=== PATIENT | female | born 1975 | race American Indian/Alaskan Native ===

== ENCOUNTER 2018-04-09 21:00 | Emergency (ER) | payer OTHER ==
[2018-04-09 21:18] VITALS: TEMP 98.1; O2SAT 100
[2018-04-09 21:19] VITALS: BMI 23.2
--- NOTE | 2018-04-09 22:49 | ED PDOC ---
Arrival/HPI - General Chief Complaint: Back Pain Time Seen by Provider: 04/09/18 21:26 Historian: Patient - History of Present Illness Narrative History of Present Illness (Text): 04/09/18 22:30 42yo female with no pmhx who present to ED with complaint of left sided upper back pain that radiates to her left elbow. Describes pain as spasm. States pain started when she woke up this morning. Pain is worse with abduction of her left arm. She did not take any medication for the pain. Denies trauma, cough, fever, chills, ripping/tearing upper back pain, nausea, vomiting, abdominal pain, chest pain, focal weakness, paresthesia. Past Medical History - Provider Review Nursing Documentation Reviewed: Yes - Psychiatric Hx Substance Use: No Family/Social History - Physician Review Nursing Documentation Reviewed: Yes Family/Social History: Unknown Family HX Smoking Status: Never Smoked Hx Alcohol Use: No Hx Substance Use: No Allergies/Home Meds Allergies/Adverse Reactions: Allergies No Known Allergies Allergy (Verified 04/09/18 21:17) Review of Systems - Physician Review All systems were reviewed & negative as marked: Yes - Review of Systems Constitutional: Normal Eyes: Normal ENT: Normal Respiratory: Normal Cardiovascular: Normal Gastrointestinal: Normal Genitourinary Female: Normal Musculoskeletal: Arthralgias (LEft shoulder/arm), Back Pain Skin: Normal Neurological: Normal Endocrine: Normal Hemo/Lymphatic: Normal Psychiatric: Normal Physical Exam Vital Signs Reviewed: Yes Vital Signs Temp Pulse Resp BP Pulse Ox 04/09/18 23:11 79 16 118/78 100 04/09/18 21:17 98.1 F 82 19 140/86 100 Temperature: Afebrile Blood Pressure: Normal Pulse: Regular Respiratory Rate: Normal Appearance: Positive for: Well-Appearing, Non-Toxic, Comfortable Pain Distress: None Mental Status: Positive for: Alert and Oriented X 3 - Systems Exam Head: Present: Atraumatic, Normocephalic Pupils: Present: PERRL Extroacular Muscles: Present: EOMI Conjunctiva: Present: Normal Mouth: Present: Moist Mucous Membranes Neck: Present: Normal Range of Motion Respiratory/Chest: Present: Clear to Auscultation, Good Air Exchange. No: Respiratory Distress, Accessory Muscle Use Cardiovascular: Present: Regular Rate and Rhythm, Normal S1, S2. No: Murmurs Abdomen: No: Tenderness, Distention, Peritoneal Signs Back: Present: Paraspinal Tenderness (Left parathoracic/scapular ). No: Midline Tenderness, Pain with Leg Raise Upper Extremity: Present: Normal ROM, NORMAL PULSES, Tenderness (LEft proximal shoulder ), Neurovascularly Intact. No: Cyanosis, Edema, Swelling Lower Extremity: Present: Normal Inspection. No: Edema Neurological: Present: GCS=15, CN II-XII Intact, Speech Normal Skin: Present: Warm, Dry, Normal Color. No: Rashes Psychiatric: Present: Alert, Oriented x 3, Normal Insight, Normal Concentration Medical Decision Making ED Course and Treatment: 04/10/18 01:44 PT presented for stated history. She denied trauma. she was hemodynamically stable. EKG NSR @ 64bpm Her pain was controlled in ED Thoracic spine xray - No acute finding Left shoulder rxray - No acute finding Result was DW the pt. she was referred to her PMD. DC home ibuprofen, flexeril and lidoderm. Advised to apply warm compress/shower to area and rest. - RAD Interpretation Radiology Orders: 04/09/18 21:37 DORSAL (THORACIC) SPINE [RAD] Stat 04/09/18 21:38 SHOULDER LEFT [RAD] Stat - Medication Orders Current Medication Orders: Discontinued Medications Cyclobenzaprine HCl (Flexeril) 10 mg PO STAT STA Stop: 04/09/18 21:39 Last Admin: 04/09/18 21:49 Dose: 10 mg Ketorolac Tromethamine (Toradol) 60 mg IM STAT STA Stop: 04/09/18 21:39 Last Admin: 04/09/18 21:49 Dose: 60 mg MAR Pain Assessment Document 04/09/18 21:49 CNR (Rec: 04/09/18 21:50 CNR [email or web address]) Pain Reassessment Is this a pain reassessment? No IM Administration Charges Document 04/09/18 21:49 CNR (Rec: 04/09/18 21:50 CNR [email or web address]) Injection Site MAR Injection Site Left Vastus Lateralis Charges for Administration # of IM Administrations 1 Oxycodone/Acetaminophen (Percocet 5/325 Mg Tab) 1 tab PO STAT STA Stop: 04/09/18 23:02 Last Admin: 04/09/18 23:05 Dose: 1 tab MAR Pain Assessment Document 04/09/18 23:05 CNR (Rec: 04/09/18 23:05 CNR [id number]) Pain Reassessment Is this a pain reassessment? No Disposition/Present on Arrival - Present on Arrival Any Indicators Present on Arrival: No History of DVT/PE: No History of Uncontrolled Diabetes: No Urinary Catheter: No History of Decub. Ulcer: No History Surgical Site Infection Following: None - Disposition Have Diagnosis and Disposition been Completed?: Yes Diagnosis: Shoulder pain, Back pain Disposition: HOME/ ROUTINE Disposition Time: 22:50 Patient Plan: Discharge Condition: STABLE Discharge Instructions (ExitCare): Upper Back Pain (DC), Shoulder Pain (DC) Additional Instructions: Follow up with your Doctor Return to ED for any new or worsening symptoms Prescriptions: Cyclobenzaprine [Cyclobenzaprine HCl] 10 mg PO TID #12 tab Ibuprofen [Motrin Tab] 600 mg PO Q6 #15 tab Lidocaine 5% [Lidoderm] 1 each TP BID #12 patch Referrals: Afia James MD [Medical Doctor] - Follow up with primary [facility] [place] [Outside] - Follow up with primary [facility] [Outside] - Follow up with primary Forms: [facility] (German)
[2018-04-09] MEDS: Oxycodone/Acetaminophen 5/325 mg Tab PO STA (23:05)
[2018-04-09 23:12] VITALS: BP 118/78; PULSE 79; RESP 16
--- NOTE | 2018-04-10 09:49 | CARD ---
APPROVED REPORT Date of service: 04/09/2018 EKG Measurement Heart [id number] <Conclusion> Normal sinus rhythm Voltage criteria for left ventricular hypertrophy
--- NOTE | 2018-04-10 09:56 | RAD ---
Date of service: 04/09/2018 HISTORY: back pain COMPARISON: No prior. FINDINGS: BONES: Alignment maintained. No fracture. DISC SPACES: Normal. SOFT TISSUES: Normal. OTHER FINDINGS: None. IMPRESSION: Normal radiographs of the thoracic spine.
--- NOTE | 2018-04-10 09:57 | RAD ---
Date of service: 04/09/2018 PROCEDURE: Radiographs of the Left Shoulder HISTORY: shoulder pain COMPARISON: No prior. FINDINGS: BONES: Normal. No fracture. JOINTS: Normal. Glenohumeral and acromioclavicular joints preserved. No osteoarthritis. SOFT TISSUES: Normal. OTHER FINDINGS: None. IMPRESSION: Normal radiographs of the left shoulder.
== END 2018-04-09 23:11 | disposition home or self-care (01) ==
LOC: ED 21:00
DX: M54.9 Dorsalgia, unspecified (principal); M25.512 Pain in left shoulder
CPT/HCPCS: 72070; 73030; 93005; 96372; 99283; J1885